=== PATIENT | male | born 1995 | race Two or more races ===

== ENCOUNTER 2018-10-29 09:49 | Outpatient (CLI) | payer OTHER | END 2018-10-29 10:03 | disposition home or self-care (01) | LOC: RAD 501 09:49 | DX: M25.561 Pain in right knee (principal) ==

== ENCOUNTER 2018-11-13 09:28 | Outpatient (CLI) | payer OTHER | END 2018-11-13 11:11 | disposition home or self-care (01) | LOC: RAD 501 09:28 | DX: Z76.89 Persons encountering health services in other specified circumstances (principal) ==

== ENCOUNTER → 2018-11-14 | Day surgery (SDC) | payer OTHER | END | disposition home or self-care (01) | LOC: ADM 11-13 10:45 → CIR.AMB 10:45 | DX: S83.211A Bucket-handle tear of medial meniscus, current injury, right knee, initial encounter (principal); M12.261 Villonodular synovitis (pigmented), right knee ==

== ENCOUNTER → 2020-05-17 | Outpatient (CLI) | payer OTHER | END | disposition home or self-care (01) | LOC: MRI 11:12 | PROVIDERS: ATTEND Colon & Rectal Surgery | DX: L05.01 Pilonidal cyst with abscess (principal) | CPT/HCPCS: 72197 ==

== ENCOUNTER → 2020-06-13 12:50 | Outpatient (CLI) | payer OTHER | END | disposition home or self-care (01) | LOC: LAB 12:50 | PROVIDERS: ATTEND Colon & Rectal Surgery | DX: I10 Essential (primary) hypertension (principal); L05.01 Pilonidal cyst with abscess ==

== ENCOUNTER 2021-09-08 09:00 | Outpatient (CLI) | payer OTHER | END 2021-09-08 09:15 | disposition home or self-care (01) | LOC: PPH VACUNA 09:00 | PROVIDERS: ATTEND Emergency Medicine Pediatric Emergency Medicine | DX: Z23 Encounter for immunization (principal) ==